=== PATIENT | male | born 1985 ===

== ENCOUNTER 2023-07-14 12:52 | Inpatient (IN) | payer OTHER ==
[~2023-07-14] VITALS: Ht 185.4 cm; Wt 81.1 kg
[2023-07-14] VITALS (26 sets, daily range): BP systolic 121–161; BP diastolic 78–107; PULSE 68–94; RESP 7–18; TEMP 97.4–98.4; O2SAT 92–100
[2023-07-14] MEDS: famotidine 20mg tablet PO ONE (05:30)
[~2023-07-14 12:52] MED LIST: ABAC1TAB14 PO; ACET-2119 PO; ATRIN IH; DOCU100C38 PO; OXYB5TAB21 PO; tobramycin sulfate 1.2gm vial ONE; vancomycin 1,000mg inj ONE
[2023-07-14] MEDS ORDERED: proCHLORperazine 10 MG/2 ml inj IV PRN (13:25)
[2023-07-14] MEDS ORDERED: ringers solution, lacted 1,000 ML IV SCH (13:25)
[2023-07-14] MEDS ORDERED: meperidine/PF 25mg/ml syringe IV PRN ×3 (13:25)
[2023-07-14] MEDS ORDERED: morphine 2 MG/ML inj. syringe IV PRN (13:25)
[2023-07-14] MEDS ORDERED: enalaprilat dihydrate 2.5mg/2ml vial IV PRN (13:25)
[2023-07-14] MEDS ORDERED: ondansetron/PF 4mg/2ml inj IV PRN ×2 (13:25→16:50)
[2023-07-14] MEDS ORDERED: vancomycin 1,000mg inj ONE (13:37)
[2023-07-14] MEDS: vancomycin 1,000mg inj IVT ONE (13:44)
[2023-07-14] MEDS: tobramycin sulfate 1.2gm vial TP ONE (13:46)
[2023-07-14] MEDS ORDERED: sevoflurane 250ml liquid IH ONE (14:55)
[2023-07-14] MEDS ORDERED: ondansetron/PF 4mg/2ml inj ONE (14:55)
[2023-07-14] MEDS ORDERED: fentaNYL /PF 50mcg/ml 5ml ampule ONE (15:05)
[2023-07-14] MEDS ORDERED: midazolam 1 mg/ML 2ml injection ONE (15:05)
[2023-07-14] MEDS ORDERED: LIDOcaine 2% (20mg/ml) 5ml vial ONE (15:21)
[2023-07-14] MEDS ORDERED: propofol inj 20 ML IV ONE (15:21)
[2023-07-14] MEDS ORDERED: dexamethasone sod phosphate 4mg/ml inj. ONE (15:21)
[2023-07-14] MEDS ORDERED: acetaminophen 325mg tablet PO PRN (16:50)
[2023-07-14] MEDS ORDERED: diphenhydrAMINE 25mg capsule PO PRN ×2 (16:50)
[2023-07-14] MEDS ORDERED: HYDROmorphone inj. 0.5 MG/0.5 ML DISP.SYRIN IV PRN (16:50)
[2023-07-14] MEDS ORDERED: naloxone 0.4 mg/ml inj IV PRN (16:50)
[2023-07-14] MEDS ORDERED: magnesium hydroxide 30ml (MOM) UD suspension PO PRN (16:50)
[2023-07-14] MEDS ORDERED: bisacodyl 10mg suppository rectal RC PRN (16:50)
[2023-07-14] MEDS: morphine 4 MG/ML inj SYRINge IV PRN (17:19)
[2023-07-14] MEDS: labetalol 20mg/4ml (5mg/ml) syringe IV PRN (18:00)
[2023-07-14] MEDS: potassium Cl 20mEq in NS 1,000 ML IV SCH (21:46)
[2023-07-14] MEDS: tranexamic acid inj. 800 MG in normal saline 100ml IV soln 92 ML IV ONE (21:46)
[2023-07-14] MEDS: gabapentin 300mg capsule PO SCH (21:47)
[2023-07-14] MEDS: sennosides 8.6mg tablet PO SCH (21:48)
[2023-07-14] MEDS: oxyCODONE IR 5mg (immed. release) tablet PO PRN (21:49)
[2023-07-14] MEDS: vancomycin/NS 1 GM ADD-VANTAGE 250 ML IV SCH (21:49)
[2023-07-14] MEDS: acetaminophen 325mg tablet PO SCH (22:02)
[2023-07-14] MEDS: ringers solution, lacted 1,000 ML IV SCH (23:03)
[2023-07-14] MEDS: cefazolin 2gm/D5W 100mL 100 ML IV ONE (23:04)
[2023-07-14] MEDS: vancomycin 1,500 MG in NS 300ml IV soln IV ONE (23:05)
[2023-07-15] VITALS (10 sets, daily range): BP systolic 122–147; BP diastolic 74–101; PULSE 68–98; RESP 14–18; TEMP 97.9–98.5; O2SAT 96–99
[2023-07-15] MEDS: ceFAZolin/D5W- 1GM premix 50 ML IV SCH (00:09)
[2023-07-15] MEDS ORDERED: acetaminophen 325mg tablet PO PRN (12:50)
[2023-07-15] MEDS ORDERED: albuterol 2.5 MG/3 ML nebule NEB PRN (13:05)
[2023-07-15] MEDS ORDERED: VANCOMYCIN 1,500MG inj. 1,500 MG in normal saline 500ml IV soln 300 ML IV SCH (13:10)
[2023-07-15] MEDS: TRIUMEQ PO ONE (13:20)
[2023-07-15] MEDS: ipratropium 0.5 MG/2.5ML nebule IH SCH (13:20)
[2023-07-15] MEDS: vancomycin 1,750 MG in NS 350ml IV soln IV ONE (14:09)
[2023-07-15 14:55] LABS: CREATININE 1.07 MG/DL (0.60-1.10); eCRCL 106 ML/MIN; eGFR 77 ML/MIN
[2023-07-15] MEDS: docusate sod 100mg capsule PO SCH (20:20)
[2023-07-15] MEDS: oxybutynin 5mg tablet PO SCH (20:20)
[2023-07-16] VITALS (7 sets, daily range): BP systolic 137; BP diastolic 91; PULSE 75–102; RESP 12–20; TEMP 99.1; O2SAT 96–97
[2023-07-16] MEDS: VANCOmycin 1250MG/NS 250ml Bag 250 ML IV SCH (01:39)
[2023-07-16] MEDS: TRIUMEQ PO SCH (08:38)
[2023-07-16] MEDS: oxyCODONE IR 5mg (immed. release) tablet PO PRN (10:59)
[2023-07-16] MEDS ORDERED: gabapentin 400mg capsule PO SCH (12:42)
[2023-07-16] MEDS: gabapentin 300mg capsule PO SCH (13:53)
[2023-07-16] MEDS ORDERED: acetaminophen 325mg tablet PO PRN (16:50)
[2023-07-17] MEDS: VANCOMYCIN LEVEL IV ONE (02:02)
[2023-07-17 06:54] VITALS: BP 134/81; PULSE 115; RESP 12; TEMP 98.7; O2SAT 95
[2023-07-17 08:00] VITALS: RESP 18
[2023-07-17 14:42] VITALS: BP 108/79; PULSE 93; RESP 16; TEMP 97.3; O2SAT 98
[2023-07-17] MEDS: VANCOMYCIN 1,500MG inj. 1,500 MG in normal saline 500ml IV soln 300 ML IV SCH (14:48)
[2023-07-17 15:51] VITALS: PULSE 100; RESP 18; O2SAT 99
[2023-07-17 15:52] VITALS: PULSE 99; RESP 20
[2023-07-17 18:44] VITALS: RESP 16
[2023-07-17] MEDS: HYDROmorphone 1 mg/ml syringe IV PRN (18:44)
== END 2023-07-17 19:41 | DRG 502 ==
LOC: PAS IN 12:52 → EEVIPCON 14:45 → ORTHO 4S 19:30 → SUR 3N 07-16 17:05
PROVIDERS: ADMIT Orthopaedic Surgery; ATTEND Orthopaedic Surgery
PROC: 0YB70ZZ Excision of Right Femoral Region, Open Approach (ICD-10-PCS; 2023-07-14)
PROC: 3E0T3BZ Introduction of Anesthetic Agent into Peripheral Nerves and Plexi, Percutaneous Approach (ICD-10-PCS; 2023-07-14)
PROC: 3E0T33Z Introduction of Anti-inflammatory into Peripheral Nerves and Plexi, Percutaneous Approach (ICD-10-PCS; 2023-07-14)
PROC: 3E01329 Introduction of Other Anti-infective into Subcutaneous Tissue, Percutaneous Approach (ICD-10-PCS; principal; 2023-07-14 14:55)
DX: M86.8X6 Other osteomyelitis, lower leg (principal); Z79.899 Other long term (current) drug therapy; Z86.14 Personal history of Methicillin resistant Staphylococcus aureus infection; Z89.611 Acquired absence of right leg above knee; Z88.6 Allergy status to analgesic agent
CPT/HCPCS: 36569; Z7506; Z7508; 36415; 76942; 80202; 82565; 82948; 87070; 87075; 87077; 87186; 94640; 94760; 97116; 97161; 97530; A4618; A6222; A6253; A6258; A6446; A6449; A7000; C1713; C1751; G0378; J0690; J1100; J1170; J2250; J2270; J2405; J2704; J3010; J3260; J3370; J3480; J3490; J7040; J7120